=== PATIENT | female | born 1940 | race Caucasian/White ===

== ENCOUNTER 2016-12-15 11:12 | Emergency (ER) | payer MEDICARE, OTHER ==
[~2016-12-15] VITALS: Ht 160 cm; Wt 67.6 kg
[2016-12-15 11:17] VITALS: BP 153/75; PULSE 70; RESP 18; TEMP 97.9; O2SAT 95
[2016-12-15] MEDS ORDERED: METO25TA6 PO (11:46)
[2016-12-15] MEDS ORDERED: PREM0.45 PO (11:46)
[2016-12-15] MEDS ORDERED: SERT-132 PO (11:46)
[2016-12-15] MEDS ORDERED: LISI10TA3 PO (11:46)
[2016-12-15] MEDS ORDERED: TRAZ100T6 PO (11:46)
[2016-12-15] MEDS ORDERED: MULTTAB67 PO (11:46)
[2016-12-15] MEDS ORDERED: IBUP-232 PO (11:47)
--- NOTE | 2016-12-15 11:47 | PD ---
HPI Chief Complaint: Edema Time Seen by Provider: 11:33 Travel History International Travel<30 days: No Contact w/Intl Traveler<30days: No Traveled to known affect area: No History of Present Illness HPI This is a 75-year-old female who presents to the emergency department with swelling in her legs that's been going on for 2 weeks, constant, moderate severity, associated with tightness in her legs. She also has gained about 20 pounds. She says her abdomen feels more distended. She denies any shortness of breath orthopnea. She's not been on any recent long trips. 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 PFSH Past Medical History Arthritis: Yes Anxiety: Yes Cardiovascular Problems: Yes Hypertension: Yes Influenza Vaccination: Yes ?: Not Menopausal: Yes Past Surgical History Cardiac Surgery: Yes (REPAIR CONGENITAL DEFECT) Cholecystectomy: Yes Endocrine Surgery: Yes (LIVER DICT STONE) Hysterectomy: Yes Prostatectomy: Yes Other Surgery: Yes (BREAST AUGMENTATION) Social History Alcohol Use: Yes (RARELY) Tobacco Use: Yes (1/2 PPD) Substance Use: No Allergies-Medications (Allergen,Severity, Reaction): Coded Allergies: codeine (Verified Allergy, Unknown, 12/15/16) Reported Meds & Prescriptions Reported Meds & Active Scripts Active Reported Ibuprofen 600 Mg Tab 600 Mg PO Q8HR PRN Multiple Vitamin 1 Tab 1 Tab PO DAILY Trazodone (Trazodone HCl) 100 Mg Tablet 100 Mg PO HS Metoprolol Succinate ER 24 HR (Metoprolol Succinate) 25 Mg Tab 25 Mg PO DAILY Premarin (Estrogens, Conjugated) 0.45 Mg Tab 0.45 Mg PO M.W.F Sertraline (Sertraline HCl) 50 Mg Tab 50 Mg PO DAILY Lisinopril 10 Mg Tab 10 Mg PO DAILY Review of Systems Except as stated in HPI: all other systems reviewed are Neg Physical Exam Narrative GENERAL:Well appearing, no acute distress SKIN: Focused skin assessment warm and dry. HEAD: Atraumatic. Normocephalic. EYES: Pupils equal and round. No injection or drainage. ENT: Moist mucous membranes NECK: Trachea midline. CARDIOVASCULAR: Regular rate and rhythm. No murmur appreciated. 2+ bilateral pitting edema RESPIRATORY: Clear to auscultation. Breath sounds equal bilaterally. GASTROINTESTINAL: Abdomen soft, non-tender, distended. MUSCULOSKELETAL: No obvious deformities. NEUROLOGICAL: Awake and alert. No obvious cranial nerve deficits. Moving all extremities. PSYCHIATRIC: Appropriate mood and affect; insight and judgment normal. Data Data Last Documented VS Vital Signs Date Time Temp Pulse Resp B/P (MAP) Pulse Ox O2 Delivery O2 Flow Rate FiO2 12/15/16 12:48 58 18 144/71 (95) 95 Room Air 12/15/16 11:17 97.9 Orders Orders Complete Blood Count With Diff (12/15/16 11:42) Comprehensive Metabolic Panel (12/15/16 11:42) Us Leg Venous Doppler Bilat (12/15/16 ) B-Type Natriuretic Peptide (12/15/16 11:42) Urinalysis - C+S If Indicated (12/15/16 11:42) Labs Laboratory Tests Test 12/15/16 11:55 12/15/16 12:05 12/15/16 12:10 Urine Collection Type CLEAN CATCH Urine Color YELLOW Urine Turbidity CLEAR Urine pH 5.5 Urine Specific [place] 1.015 Urine Protein NEG mg/dL Urine Glucose (UA) NEG mg/dL Urine Ketones NEG mg/dL Urine Occult Blood TRACE Urine Nitrite NEG Urine Bilirubin NEG Urine Leukocyte Esterase NEG Urine RBC 0-3 /hpf Urine Squamous Epithelial Cells 0-5 /hpf Microscopic Urinalysis Comment CULT NOT INDICATED White Blood Count 7.8 TH/MM3 Red Blood Count 4.49 MIL/MM3 Hemoglobin 13.5 GM/DL Hematocrit 41.5 % Mean Corpuscular Volume 92.5 FL Mean Corpuscular Hemoglobin 30.1 PG Mean Corpuscular Hemoglobin Concent 32.6 % Red Cell Distribution Width 13.8 % Platelet Count 200 TH/MM3 Mean Platelet Volume 9.2 FL Neutrophils (%) (Auto) 52.2 % Lymphocytes (%) (Auto) 37.7 % Monocytes (%) (Auto) 7.0 % Eosinophils (%) (Auto) 0.9 % Basophils (%) (Auto) 2.2 % Neutrophils # (Auto) 4.1 TH/MM3 Lymphocytes # (Auto) 2.9 TH/MM3 Monocytes # (Auto) 0.5 TH/MM3 Eosinophils # (Auto) 0.1 TH/MM3 Basophils # (Auto) 0.2 TH/MM3 CBC Comment DIFF FINAL Differential Comment Blood Urea Nitrogen 16 MG/DL Creatinine 0.82 MG/DL Random Glucose 94 MG/DL Total Protein 7.8 GM/DL Albumin 3.3 GM/DL Calcium Level 9.3 MG/DL Alkaline Phosphatase 94 U/L Aspartate Amino Transf (AST/SGOT) 43 U/L Alanine Aminotransferase (ALT/SGPT) 37 U/L Total Bilirubin 0.3 MG/DL Sodium Level 141 MEQ/L Potassium Level 4.4 MEQ/L Chloride Level 108 MEQ/L Carbon Dioxide Level 26.4 MEQ/L Anion Gap 7 MEQ/L Estimat Glomerular Filtration Rate 68 ML/MIN B-Type Natriuretic Peptide 106 PG/ML MDM Medical Decision Making Medical Screen Exam Complete: No Emergency Medical Condition: No Interpretation(s) Afebrile, no tachycardia, mild hypertension No leukocytosis Electrolytes are reassuring BNP is 100 Urinalysis is negative for infection Ultrasound is negative for DVT Differential Diagnosis DVT, congestive heart failure, kidney failure Narrative Course This is a 75-year-old female who presents to the emergency department with lower extremity swelling and weight gain. This been going on for several weeks. She doesn't a history of an open heart surgery. Labs are obtained including a BNP which is indeterminate. Ultrasound is negative for DVT. Renal function is normal. I think she is safe for outpatient follow-up but she should likely have an echo performed by her primary care physician. She is instructed to use compression stockings and elevate her feet when resting. Diagnosis Primary Impression: Edema Qualified Codes: R60.9 - Edema, unspecified Patient Instructions: General Instructions Additional Instructions: If you develop severe chest pain, shortness of breath, sweating, lightheadedness , dizziness or difficulty breathing return to the emergency department immediately. Follow-up with your primary care physician to have the ultrasound done of your heart. Med/Other Pt SpecificInfo: No Change to Meds Disposition: 01 DISCHARGE HOME Condition: Stable Sharon Reyes MD Dec 15, 2016 11:47
[2016-12-15 12:15] LABS: BLOOD, URINE TRACE (NEG); GLUCOSE,URINE NEG (NEG); KETONE, URINE NEG (NEG); NITRITE,URINE NEG (NEG); PH, URINE 5.5 (5.0-8.5)
[2016-12-15 12:21] LABS: AUTOMATED NEUTROPHIL # 4.1 TH/MM3 (1.8-7.7); BASOPHIL # 0.2 TH/MM3 (0-0.2); BASOPHIL % 2.2 % (0.0-2.0); EOSINOPHIL # 0.1 TH/MM3 (0-0.4); EOSINOPHIL % 0.9 % (0.0-4.0); HEMATOCRIT 41.5 % (35.0-46.0); HEMO FLAGS DIFF FINAL; LYMPH % 37.7 % (9.0-44.0); LYMPHOCYTE # 2.9 TH/MM3 (1.0-4.8); MEAN CELL VOLUME 92.5 FL (80.0-100.0); MEAN CORPUSCULAR HEMOGLOBIN 30.1 PG (27.0-34.0); MEAN CORPUSCULAR HGB CONC 32.6 % (32.0-36.0); NEUT % 52.2 % (16.0-70.0); PLATELET COUNT 200 TH/MM3 (150-450); RED BLOOD COUNT 4.49 MIL/MM3 (4.00-5.30); RED CELL DISTRIBUTION WIDTH 13.8 % (11.6-17.2); WHITE BLOOD COUNT 7.8 TH/MM3 (4.0-11.0)
[2016-12-15 12:22] LABS: METHOD OF COLLECTION CLEAN CATCH
[2016-12-15 12:23] LABS: COMMENT (UR) CULT NOT INDICATED; CULTURE IF INDICATED CULT NOT INDICATED; RBC, URINE 0-3 /hpf (0-3); SQUAMOUS EPITHELIAL CELL URINE 0-5 /hpf (0-5); URINE COLOR YELLOW (YELLW/STRAW)
[2016-12-15 12:25] LABS: CHLORIDE 108 MEQ/L (98-107); POTASSIUM 4.4 MEQ/L (3.5-5.1); SODIUM (NA) 141 MEQ/L (136-145)
[2016-12-15 12:28] LABS: ANION GAP 7 MEQ/L (5-15); BICARBONATE 26.4 MEQ/L (21.0-32.0)
[2016-12-15 12:29] LABS: BLOOD UREA NITROGEN 16 MG/DL (7-18)
[2016-12-15 12:32] LABS: ALT (GPT) 37 U/L (10-53); AST (GOT) 43 U/L (15-37); GLOMERULAR FILTRATION RATE 68 ML/MIN (>89)
[2016-12-15 12:33] LABS: TOTAL BILIRUBIN ADULT 0.3 MG/DL (0.2-1.0)
[2016-12-15 12:34] LABS: ALKALINE PHOSPHATASE 94 U/L (45-117)
--- NOTE | 2016-12-15 12:39 | RADRPT ---
EXAM DATE/TIME: 12/15/2016 12:10 [facility] COMPARISON: No previous studies available for comparison. INDICATIONS : Bilateral leg swelling. MEDICAL HISTORY : Hypertension. Anxiety. SURGICAL HISTORY : Hysterectomy.Cholecystectomy. Congenital cardiac defect repair. Breast augmentation. ENCOUNTER: Initial ACUITY: 2 weeks PAIN SCORE: 0/10 LOCATION: Bilateral legs. TECHNIQUE: Venous ultrasound of the left and right leg was performed from the inguinal ligament to the proximal calf. Real-time, color Doppler and spectral tracing, compression and augmentation techniques were us ed. FINDINGS: RIGHT LEG: There is normal compressibility of the deep venous system from the inguinal region to the proximal ca lf. No echogenic clot is seen in the lumen of the common femoral, femoral, popliteal, and posterior tibial veins. There is a normal response of the venous system to proximal and distal augmentation an d respiration. LEFT LEG: There is normal compressibility of the deep venous system from the inguinal region to the proximal ca lf. No echogenic clot is seen in the lumen of the common femoral, femoral, popliteal, and posterior tibial veins. There is a normal response of the venous system to proximal and distal augmentation an d respiration. CONCLUSION: No deep venous thrombosis. José Luis Mims MD FACR on December 15, 2016 at 12:37 Board Certified Radiologist. This report was verified electronically.
[2016-12-15 12:48] VITALS: BP 144/71; PULSE 58; RESP 18; O2SAT 95
== END 2016-12-15 13:40 | disposition home or self-care (01) ==
LOC: PHED 11:12
DX: R60.9 Edema, unspecified (principal); I10 Essential (primary) hypertension; F17.200 Nicotine dependence, unspecified, uncomplicated
CPT/HCPCS: 80053; 81001; 83880; 85025; 93970